=== PATIENT | male | born 1970 | race Caucasian/White ===

== ENCOUNTER 2017-10-04 13:38 | Emergency (ER) | payer MEDICAID ==
[~2017-10-04] VITALS: Ht 177.8 cm; Wt 85.6 kg
[2017-10-04 13:44] VITALS: BP 137/91
== END 2017-10-04 14:34 | disposition home or self-care (01) ==
LOC: ED 14:28
DX: J01.00 Acute maxillary sinusitis, unspecified (principal)
CPT/HCPCS: 99283

== ENCOUNTER 2020-03-29 17:24 | Emergency (ER) | payer MEDICAID ==
[~2020-03-29] VITALS: Ht 177.8 cm; Wt 84.0 kg
[2020-03-29] MEDS ORDERED: L.E.T SOLUTION TP ONE ×2 (18:05→18:30)
[2020-03-29] MEDS ORDERED: DIPH,PERTUSS(ACELL),TET VAC/PF 0.5 ML IM-VACC ONE (18:30)
--- NOTE | 2020-03-29 18:44 | NUR ---
LET ON. PT UP TO RESTROOM WITH STRONG, INDEPENDENT GAIT. NO ASSISTANCE NECESSARY, RETURNED TO BED WITHOUT ISSUE. CALL LIGHT IN REACH.
[2020-03-29] MEDS ORDERED: LIDOCAINE-MPF 1%, 5ML ONE (18:59)
[2020-03-29] MEDS ORDERED: LIDOCAINE-MPF 1%, 5ML INFIL ONE (19:00)
[2020-03-29] MEDS ORDERED: NEOSPORIN OINT. PKT 1 PACKET ONE ×2 (19:11→19:14)
[2020-03-29 19:30] VITALS: BP 135/79
== END 2020-03-29 19:32 | disposition home or self-care (01) ==
LOC: ED 19:20
DX: S01.81XA Laceration without foreign body of other part of head, initial encounter (principal); X58.XXXA Exposure to other specified factors, initial encounter; Y93.89 Activity, other specified; Y92.009 Unspecified place in unspecified non-institutional (private) residence as the place of occurrence of the external cause; Y99.8 Other external cause status
CPT/HCPCS: 12011; 99283

== ENCOUNTER 2020-04-06 10:37 | Emergency (ER) | payer MEDICAID ==
[~2020-04-06] VITALS: Ht 177.8 cm; Wt 78.7 kg
[2020-04-06 10:39] VITALS: BP 132/90
--- NOTE | 2020-04-06 10:50 | NUR ---
PT HERE FOR SUTURE REMOVAL. HAD THEM PLACED HERE 8 DAYS AGO. PT RESTING ON CHRISTOPHER. PAIGE. SUTURE REMOVAL KIT AT BEDSIDE.
== END 2020-04-06 11:13 | disposition home or self-care (01) ==
LOC: ED 11:02
DX: S01.01XD Laceration without foreign body of scalp, subsequent encounter (principal); X58.XXXD Exposure to other specified factors, subsequent encounter
CPT/HCPCS: 99281

== ENCOUNTER 2021-02-23 12:36 | Emergency (ER) | payer MEDICAID ==
[~2021-02-23] VITALS: Ht 177.8 cm; Wt 87.0 kg
--- NOTE | 2021-02-23 12:59 | NUR ---
CONTACT WITH PT, 50 YR OLD MALE HERE WITH C/O "VOMITING, SOB REAL BAD, CANT SMELL OR TASTE NOTHING" THIS IS DAY 2. PT LAYING ON GURNEY, NO ACUTE DISTRESS NOTED. 98% RA SATS.
[2021-02-23 13:05] VITALS: BP 10/91
--- NOTE | 2021-02-23 13:09 | NUR ---
DENIES TAKING ANY PRESCRIPTION MEDICATIONS AT THIS TIME. "I SHOULD BE ON PSYCH MEDS"
--- NOTE | 2021-02-23 14:24 | NUR ---
PT IN NO ACUTE DISTRESS. PT TO BE DC'D.
--- NOTE | 2021-02-23 15:00 | NUR ---
NO IV TO DC, REVIEWED DC INSTRUCTIONS WITH PT, UNDERSTANDING VERBALIZED. PT LEFT AMB, GAIT STEADY.
== END 2021-02-23 15:25 | disposition home or self-care (01) ==
LOC: ED 15:20
DX: J06.9 Acute upper respiratory infection, unspecified (principal); Z20.822 Contact with and (suspected) exposure to COVID-19; R07.89 Other chest pain; F17.200 Nicotine dependence, unspecified, uncomplicated
CPT/HCPCS: 71045; 99284; U0003; U0005